=== PATIENT | female | born 1975 | race African-American/Black ===

== ENCOUNTER 2017-09-07 09:54 | Observation (INO) | payer OTHER ==
[2017-09-07] MEDS ORDERED: SODIUM CHLORIDE FLUSH 0.9% 10 ML SYRINGE IVP ONE (10:17)
[2017-09-07 11:23] LABS: ALBUMIN/GLOBULIN RATIO 1.2 (1.0-2.2); BILIRUBIN,TOTAL 0.4 mg/dL (0.2-1.0); CALCIUM 9.3 mg/dL (8.5-10.3); CREATININE 0.8 mg/dL (0.4-1.0); POTASSIUM 4.4 mmol/L (3.5-5.0); TOTAL PROTEIN 7.7 g/dL (6.7-8.2)
[2017-09-07 11:46] LABS: BASOPHILS # (AUTO) 0.1 10^3/uL (0.0-0.1); BASOPHILS % (AUTO) 0.9 %; EOSINOPHILS # (AUTO) 0.2 10^3/uL (0.0-0.7); EOSINOPHILS % (AUTO) 1.9 %; LYMPHOCYTES # (AUTO) 1.8 10^3/uL (1.5-3.5); LYMPHOCYTES % (AUTO) 19.3 %; MEAN CORPUSCULAR HEMOGLOBIN 12.6 pg (27.0-31.0); MEAN CORPUSCULAR HGB CONC 25.7 g/dL (32.0-36.0); MEAN CORPUSCULAR VOLUME 48.9 fL (81.0-99.0); MEAN PLATELET VOLUME 8.9 fL (7.9-10.8); MONOCYTES # (AUTO) 0.5 10^3/uL (0.0-1.0); MONOCYTES % (AUTO) 5.4 %; NEUTROPHILS # (AUTO) 6.9 10^3/uL (1.5-6.6); NEUTROPHILS % (AUTO) 72.5 %; RED BLOOD COUNT 4.71 10^6/uL (4.20-5.40); UNCORRECTED WHITE BLOOD COUNT 9.5 x10^3/uL; WHITE BLOOD COUNT 9.5 x10^3/uL (4.8-10.8)
[2017-09-07 11:53] LABS: HGB - HEMOGLOBIN 5.9 g/dL (12.0-16.0)
[2017-09-07 12:08] LABS: PLATELET MORPHOLOGY RARE GIANT PLATELETS (NORMAL)
[2017-09-07 12:09] LABS: PLATELET ESTIMATE, MANUAL NORMAL (130-450,000) (NORMAL)
--- NOTE | 2017-09-07 12:09 | ED Physician Documentation ---
History of Present Illness - Stated complaint Stated Complaint: DIZZINESS - Chief complaint Chief Complaint: Neuro - History obtained from History obtained from: Patient - History of Present Illness Timing: How many weeks ago (3) - Additonal information Additional information: 42-year-old female with a long history of anemia and a family history of anemia related to heavy menstrual flow and iron deficiency has not been taking her iron for about 2 years. She has noticed over the past 3 weeks that she has become more fatigued has exertional dyspnea with shorter and shorter distances. Today she went to go into work and was not able to stay at work with fatigue dyspnea and near syncope. She is come to the emergency department today for evaluation.She does have a history of COPD last used her inhaler about 2 weeks ago. She states that usually she begins coughing in the winter and coughs all winter. She has been on Advair previously which helped with this but she is not currently using anything but an albuterol rescue inhaler. Review of Systems Constitutional: reports: Fatigue. denies: Fever, Chills Eyes: denies: Decreased vision Ears: denies: Ear pain Nose: denies: Rhinorrhea / runny nose, Congestion Throat: denies: Sore throat Cardiac: denies: Chest pain / pressure, Palpitations Respiratory: reports: Dyspnea, Cough GI: denies: Abdominal Pain, Nausea, Vomiting : denies: Dysuria, Frequency Skin: denies: Rash Musculoskeletal: denies: Neck pain, Back pain, Extremity pain Neurologic: reports: Generalized weakness, Near syncope. denies: Focal weakness , Numbness PD PAST MEDICAL HISTORY - Past Medical History Past Medical History: Yes Endocrine/Autoimmune: HyPOthyroidism - Past Surgical History Past Surgical History: No - Present Medications Home Medications: Ambulatory Orders Medication Instructions Recorded Confirmed Albuterol Sulfate [Ventolin Hfa] 2 puffs IH Q4H PRN 03/24/16 09/07/17 - Allergies Allergies/Adverse Reactions: Allergies Allergy/AdvReac Type Severity Reaction Status Date / Time oxycodone Allergy Itching Verified 03/24/16 18:05 - Social History Does the pt smoke?: No Smoking Status: Never smoker Does the pt drink ETOH?: No Does the pt have substance abuse?: No - Immunizations Immunizations are current?: Yes PD ED PE NORMAL - Vitals Vital signs reviewed: Yes (hypertensive) - General General: Alert and oriented X 3, No acute distress, Well developed/nourished - HEENT HEENT: Atraumatic, PERRL, EOMI, Other (mild inflamation in the left TM in the attic) - Neck Neck: Supple, no meningeal sign, No bony TTP - Cardiac Cardiac: RRR, No murmur - Respiratory Respiratory: No respiratory distress, Other (diminished breath sounds. ) - Abdomen Abdomen: Soft, Non tender - Back Back: No CVA TTP, No spinal TTP - Derm Derm: Normal color, Warm and dry, No rash - Extremities Extremities: No deformity, No edema - Neuro Neuro: No motor deficit, No sensory deficit - Psych Psych: Normal mood, Normal affect Results - Vitals Vitals: Vital Signs - 24 hr 09/07/17 10:08 Temperature 36.1 C L Heart Rate 83 Respiratory 17 Rate Blood Pressure 137/84 H O2 Saturation 100 Oxygen O2 Source Room air - EKG (time done) 1027 Rate: Rate (enter#) (75) Rhythm: NSR Ischemia: Normal ST segments Compare to prior EKG: Old EKG unavailable Computer interpretation: Agree with computer - Labs Labs: Laboratory Tests 09/07/17 09/07/17 10:55 10:55 WBC 9.5 RBC 4.71 Hgb 5.9 L* Hct 23.0 L MCV 48.9 L MCH 12.6 L MCHC 25.7 L RDW 23.0 H Plt Count 243 MPV 8.9 Neut # 6.9 H Lymph # 1.8 Runnels # 0.5 Eos # 0.2 Baso # 0.1 Absolute Nucleated RBC 0.00 Nucleated RBC % 0.0 Manual Slide Review Indicated Platelet Estimate NORMAL (130-450,000) Platelet Morphology RARE GIANT PLATELETS RBC Morph Micro Appear 1+ SCHISTOCYTES Sodium 139 Potassium 4.4 Chloride 105 Carbon Dioxide 22 Anion Gap 12.0 BUN 12 Creatinine 0.8 Estimated GFR (MDRD) 96 Glucose 107 H Calcium 9.3 Total Bilirubin 0.4 AST 15 ALT 14 Alkaline Phosphatase 58 Total Protein 7.7 Albumin 4.2 Globulin 3.5 Albumin/Globulin Ratio 1.2 Lipase 21 L Slides for Path Review Indicated PD MEDICAL DECISION MAKING - ED course Complexity details: reviewed results, re-evaluated patient, considered differential, d/w patient ED course: 42-year-old female with a prior history of chronic anemia iron deficiency has been off of her iron for 2 years and is developed symptomatic anemia. Today herHemoglobin is 5.9 MCV is 49. She is symptomatic from her anemia with exertional dyspnea and near syncope. She will need transfusion. Departure - Departure Disposition: ED Place in Observation Clinical Impression: Anemia Qualifiers: Anemia type: iron deficiency Iron deficiency anemia type: chronic blood loss Qualified Code(s): D50.0 - Iron deficiency anemia secondary to blood loss ( chronic) Condition: Stable
[2017-09-07 12:10] LABS: SLIDE SENT FOR PATH REVIEW? Indicated
[2017-09-07 12:12] LABS: CBC SPECIMEN NUMBER 759938; PATHOLOGIST REVIEW ORDER PATH SLIDE REVIEW
[2017-09-07] MEDS ORDERED: ACETAMINOPHEN 325 MG TABLET PO PRN (13:07)
[2017-09-07] MEDS ORDERED: ONDANSETRON 4 MG/2 ML VIAL IVP PRN (13:07)
[2017-09-07] MEDS ORDERED: FERRIC GLUCONATE 62.5 MG/5 ML VIAL IVP ONE (13:14)
[2017-09-07] MEDS ORDERED: ALBUTEROL NEB 2.5 MG/3 ML INH PRN (13:16)
--- NOTE | 2017-09-07 14:23 | HISTORY & PHYSICAL EXAMINATION ---
Chief Complaint - Chief Complaint Chief Complaint: dizziness, anemia History of Present Illness - Admitted From Admitted From:: ER - History Obtained From History obtained from: pt - History of Present Illness HPI Comment/Other: This is a 42-year-old -Swedish female with a past medical history significance for chronic iron deficiency anemia, heavy menstrual period, hypothroidism, Bronchitis, who present ER for evaluation of fatigue, dizziness, and weakness. Patient report in the recent three weeks she feel very easy fatigue, dizziness and weakness, and she can not focus on her work and easy be forgetful. patient report she recently moved from [place]. She did not take her Iron pill for at least two years. Patient report she had a family history of heavy menses including her mother, sisters and her daughter. Patient state " I did not take care of myself well." Patient denies chest pain, Shortness of breathing, headache, abdominal pain, fever, chill, nausea, vomiting, diarrhea, GI bleeding, dysuria, hematuria, vision issue. In the ER lab test, her HGB is 5.9, MCV 48.9. EKG is SR at pulse 75. Patient is admitted for evaluation and treatment of anemia. History - Past Medical History Endocrine/Autoimmune: reports: HyPOthyroidism - Family & Social History Family History: Mother: Alive and Well, Father: Alive and Well Family History Comment/Other: pt is single with two children, living at [place], working at [employer]. Living arrangement: At home Living Situation: With family - Substance History Use: Uses substance without health or social issues: NONE Abuse: Recurrent use of substance despite neg consequences: NONE - POLST Patient has POLST: No POLST Status: Full Code Meds/Allgy - Home Medications Home Medications: Ambulatory Orders Medication Instructions Recorded Confirmed Albuterol Sulfate [Ventolin Hfa] 2 puffs IH Q4H PRN 03/24/16 09/07/17 - Allergies Allergies/Adverse Reactions: Allergies Allergy/AdvReac Type Severity Reaction Status Date / Time oxycodone Allergy Itching Verified 03/24/16 18:05 Review of Systems - Constitutional Constitutional: reports: Fatigue, Weakness. denies: Fever, Chills, Malaise, Poor appetite, Diaphoresis, Night sweats, Weight gain, Weight loss - Eyes Eyes: denies: Pain, Irritation, Amaurosis, Blurred vision, Spots in vision, Field loss, Vision loss, Dipolpia - Ears, Nose & Throat Ears, Nose & Throat: denies: Ear pain, Hearing loss, Hearing aids, Vertigo, Nasal pain, Nasal discharge, Nosebleeds, Sore throat, Bleeding gums - Cardiovascular Cariovascular: denies: Irregular heart rate, Palpitations, Chest pain, Edema, Lightheadedness, Syncope, Exertional dyspnea, Decr. exercise tolerance - Respiratory Respiratory: denies: Cough, Sputum production, Wheezing, Snoring, Hemoptysis, Orthopnea, SOB at rest, SOB with exertion - Gastrointestinal Gastrointestinal: denies: Abdominal pain, Abdominal distention, Diarrhea, Rectal bleeding, Black stools, Bloody stools, Nausea, Vomiting, Vamshi blood emesis, Coffee grounds emesis, Reflux/heartburn, Bloating, Poor appetite - Genitourinary Genitourinary: denies: Dysuria, Frequency, Urgency, Hematuria, Incontinence, Flank pain, Nocturia, Urethral discharge - Musculoskeletal Musculoskeletal: denies: Muscle pain, Back pain, Muscle aches, Stiffness, Limited range of motion, Muscle weakness, Gout, Joint pain, Joint swelling - Integumentary Integumentary: denies: Rash, Pruritis, Lesions, Dryness, Pigment changes - Neurological Neurological: denies: General weakness, Focal weakness, Headache, Dizziness, Numbness, Memory problems, Pre-existing deficit, Abnormal gait, Seizures, Incoordination, Slurred speech - Psychiatric Psychiatric: denies: Depression, Anxiety, Suicidal, Delusions, Hallucinations, Homicidal - Endocrine Endocrine: denies: Polyuria, Polydypsia, Polyphagia, Intolerance to cold - Hematologic/Lymphatic Hematologic/Lymphatic: reports: Anemia. denies: Bruising, Petechiae, Blood clots, Lymphadenopathy, Bleeding tendencies, Recurrent infections Exam - Vital Signs Reviewed Vital Signs: Yes Vital Signs: Vital Signs x48h Temp Pulse Pulse Resp BP BP Pulse Ox 09/07/17 13:44 36.4 C L 82 149/76 H 100 09/07/17 13:14 78 20 122/74 99 - Physical Exam General Appearance: positive: No acute distress, Alert. negative: Lethargic Eyes Bilateral: positive: Normal inspection, PERRL, EOMI, No lid inflammation, Conjunctivae nml ENT: positive: ENT inspection nml, Pharynx nml, No signs of dehydration. negative: Purulent nasal drainage, Pharyngeal erythema, Oral lesions Neck: positive: Nml inspection, Thyroid nml, No JVD, Trachea midline. negative : Thyromegaly, Lymphadenopathy (R), Lymphadenopathy (L), Stiff neck, Carotid bruit, Swelling/bruising, Tracheal deviation Respiratory: positive: Chest non-tender, No respiratory distress, Breath sounds nml. negative: Wheezes, Rales, Rhonchi Cardiovascular: positive: Regular rate & rhythm, No murmur, No gallop. negative : Irregularly irregular, Extrasystoles, Tachycardia, PMI displaced laterally, JVD present, Systolic murmur, Diastolic murmur Peripheral Pulses: positive: 2+ Abdomen: positive: Non-tender, No organomegaly, Nml bowel sounds, No distention. negative: Tenderness, Guarding, Rebound Back: positive: Nml inspection. negative: CVA tenderness (R), CVA tenderness (L ) Skin: positive: Color nml, No rash, Warm, Dry. negative: Cyanosis, Diaphoresis , Pallor, Skin rash Extremities: positive: Non-tender, Full ROM, Nml appearance. negative: Calf tenderness, Gasper's sign/cords Neurologic/Psychiatric: positive: Oriented x3, Motor nml, Sensation nml, Mood/ affect nml. negative: Sensory loss, Facial droop, Slurred/abnml speech, Depressed mood/affect Conclusion/Plan - Problem List (1) Anemia Conclusion/Plan: HGB5.9, MCV 48.9, history of heavy menses, and iron deficiency. transfusion blood and recheck HGB IV Ferrlcit daily lab, vital monitor Qualifiers: Anemia type: iron deficiency Iron deficiency anemia type: chronic blood loss Qualified Code(s): D50.0 - Iron deficiency anemia secondary to blood loss (chronic) (2) Hypothyroid Conclusion/Plan: pt report she had history of hypothyroid, but she did not take any medication check TSH vital monitor closely (3) Hx of bronchitis Conclusion/Plan: stable, resume home INH (4) DVT prophylaxis Conclusion/Plan: SCD, pt is without mobility limitation. - Lab Results Fish Bones: 09/08/17 05:43 09/08/17 05:43 Issues/Core Measures - Anticipated LOS Anticipated Stay Length: Less than 2 midnights (less than two nights expected)
[2017-09-07] MEDS: SODIUM CHLORIDE FLUSH 0.9% 10 ML SYRINGE IVP SCH ×2 (15:42→21:47)
[2017-09-07] MEDS ORDERED: FERRIC GLUCONATE 125 MG in SODIUM CHLORIDE 0.9% 100ML 100 ML IV ONE (16:00)
[2017-09-07] MEDS: SODIUM CHLORIDE FLUSH 0.9% 10 ML SYRINGE IVP PRN (20:29)
[2017-09-07] MEDS ORDERED: SODIUM CHLORIDE 0.9% 250 ML IV ONE (21:39)
[2017-09-08 02:58] LABS: HCT - HEMATOCRIT 25.1 % (37.0-47.0); HGB - HEMOGLOBIN 7.1 g/dL (12.0-16.0)
[2017-09-08 06:03] LABS: ALBUMIN/GLOBULIN RATIO 1.2 (1.0-2.2); BILIRUBIN,TOTAL 0.7 mg/dL (0.2-1.0); CALCIUM 8.3 mg/dL (8.5-10.3); CREATININE 0.7 mg/dL (0.4-1.0); MAGNESIUM 2.1 mg/dL (1.7-2.8); POTASSIUM 3.9 mmol/L (3.5-5.0); TOTAL PROTEIN 6.5 g/dL (6.7-8.2)
[2017-09-08 06:06] LABS: BASOPHILS # (AUTO) 0.1 10^3/uL (0.0-0.1); BASOPHILS % (AUTO) 0.7 %; EOSINOPHILS # (AUTO) 0.2 10^3/uL (0.0-0.7); HGB - HEMOGLOBIN 7.1 g/dL (12.0-16.0); LYMPHOCYTES # (AUTO) 1.8 10^3/uL (1.5-3.5); LYMPHOCYTES % (AUTO) 19.9 %; MEAN PLATELET VOLUME 8.9 fL (7.9-10.8); MONOCYTES # (AUTO) 0.7 10^3/uL (0.0-1.0); MONOCYTES % (AUTO) 7.5 %; NEUTROPHILS # (AUTO) 6.3 10^3/uL (1.5-6.6); NEUTROPHILS % (AUTO) 69.9 %; NUCLEATED RED BLOOD CELLS AUTO 0.1 /100WBC
[2017-09-08 06:09] LABS: HCT - HEMATOCRIT 25.5 % (37.0-47.0); MEAN CORPUSCULAR HEMOGLOBIN 15.1 pg (27.0-31.0); MEAN CORPUSCULAR HGB CONC 27.7 g/dL (32.0-36.0); MEAN CORPUSCULAR VOLUME 54.6 fL (81.0-99.0); RED BLOOD COUNT 4.68 10^6/uL (4.20-5.40); RED CELL DISTRIBUTION WIDTH 31.5 % (12.0-15.0); UNCORRECTED WHITE BLOOD COUNT 8.9 x10^3/uL; WHITE BLOOD COUNT 8.9 x10^3/uL (4.8-10.8)
[2017-09-08 06:48] LABS: PLATELET ESTIMATE, MANUAL NORMAL (130-450,000) (NORMAL)
[2017-09-08] MEDS: SODIUM CHLORIDE FLUSH 0.9% 10 ML SYRINGE IVP SCH ×2 (07:05→13:39)
[2017-09-08] MEDS ORDERED: CALCIUM GLUCONATE 1,000 MG in SODIUM CHLORIDE 0.9% 50 ML IV ONE (09:00)
[2017-09-08] MEDS ORDERED: POLYETHYLENE GLYCOL 3350 17 GM PACKET PO SCH (09:00)
[2017-09-08] MEDS ORDERED: FAMOTIDINE 20 MG TABLET PO SCH (09:00)
[2017-09-08] MEDS: SODIUM CHLORIDE FLUSH 0.9% 10 ML SYRINGE IVP PRN (10:25)
[2017-09-08] MEDS: FERROUS SULFATE 325 MG TABLET PO SCH ×2 (10:25→17:10)
--- NOTE | 2017-09-08 13:33 | Discharge Plan ---
Discharge Plan Disposition: 01 Home, Self Care Condition: Stable No Smoking: If you smoke, Please STOP! Call for help. Follow-up with: Kristen Callaway PA-C [Primary Care Provider] -
[2017-09-08 18:11] LABS: HCT - HEMATOCRIT 31.1 % (37.0-47.0); HGB - HEMOGLOBIN 8.9 g/dL (12.0-16.0)
[2017-09-08 18:23] VITALS: BP 124/59
--- NOTE | 2017-09-08 18:23 | PROVIDER PROGRESS NOTE ---
Subjective - Prog Note Date Prog Note Date: 09/08/17 - Subjective Pt reports feeling: Improved Objective - Vital Signs/Intake & Output Vital Signs: Vital Signs x48h Temp Pulse Resp BP Pulse Ox 09/08/17 17:00 36.7 C 87 18 124/59 L 100 09/08/17 13:30 36.4 C L 87 16 116/56 L 99 Intake & Output: Intake & Output 09/05/17 09/06/17 09/07/17 09/08/17 23:59 23:59 23:59 23:59 Intake Total 9428.711 5865.917 Balance 2852.144 6841.917 - Lab Results Fish Bones: 09/08/17 18:07 09/08/17 05:43 Other Labs: Lab Results x24hrs 09/08/17 09/08/17 09/08/17 Range/Units 18:07 05:43 05:43 WBC (4.8-10.8) x10^3/uL RBC (4.20-5.40) 10^6/uL Hgb 8.9 L (12.0-16.0) g/dL Hct 31.1 L (37.0-47.0) % MCV (81.0-99.0) fL MCH (27.0-31.0) pg MCHC (32.0-36.0) g/dL RDW (12.0-15.0) % Plt Count (130-450) 10^3/uL MPV (7.9-10.8) fL Neut # (1.5-6.6) 10^3/uL Lymph # (1.5-3.5) 10^3/uL Glenn # (0.0-1.0) 10^3/uL Eos # (0.0-0.7) 10^3/uL Baso # (0.0-0.1) 10^3/uL Absolute Nucleated RBC x10^3/uL Nucleated RBC % /100WBC Manual Slide Review Platelet Estimate (NORMAL) RBC Morph Micro Appear (NORMAL) Sodium 137 (135-145) mmol/L Potassium 3.9 (3.5-5.0) mmol/L Chloride 106 (101-111) mmol/L Carbon Dioxide 23 (21-32) mmol/L Anion Gap 8.0 (6-13) BUN 13 (6-20) mg/dL Creatinine 0.7 (0.4-1.0) mg/dL Estimated GFR (MDRD) 112 (>89) Glucose 108 H (70-100) mg/dL Calcium 8.3 L (8.5-10.3) mg/dL Magnesium 2.1 (1.7-2.8) mg/dL Total Bilirubin 0.7 (0.2-1.0) mg/dL AST 11 (10-42) IU/L ALT 10 (10-60) IU/L Alkaline Phosphatase 53 (42-121) IU/L Total Protein 6.5 L (6.7-8.2) g/dL Albumin 3.5 (3.2-5.5) g/dL Globulin 3.0 (2.1-4.2) g/dL Albumin/Globulin Ratio 1.2 (1.0-2.2) TSH 10.01 H (0.34-5.60) uIU/mL 09/08/17 09/08/17 Range/Units 05:43 02:44 WBC 8.9 (4.8-10.8) x10^3/uL RBC 4.68 (4.20-5.40) 10^6/uL Hgb 7.1 L 7.1 L (12.0-16.0) g/dL Hct 25.5 L 25.1 L (37.0-47.0) % MCV 54.6 L (81.0-99.0) fL MCH 15.1 L (27.0-31.0) pg MCHC 27.7 L (32.0-36.0) g/dL RDW 31.5 H (12.0-15.0) % Plt Count 233 (130-450) 10^3/uL MPV 8.9 (7.9-10.8) fL Neut # 6.3 (1.5-6.6) 10^3/uL Lymph # 1.8 (1.5-3.5) 10^3/uL Glenn # 0.7 (0.0-1.0) 10^3/uL Eos # 0.2 (0.0-0.7) 10^3/uL Baso # 0.1 (0.0-0.1) 10^3/uL Absolute Nucleated RBC 0.01 x10^3/uL Nucleated RBC % 0.1 /100WBC Manual Slide Review Indicated Platelet Estimate NORMAL (130-450,000) (NORMAL) RBC Morph Micro Appear 1+ SCHISTOCYTES (NORMAL) Sodium (135-145) mmol/L Potassium (3.5-5.0) mmol/L Chloride (101-111) mmol/L Carbon Dioxide (21-32) mmol/L Anion Gap (6-13) BUN (6-20) mg/dL Creatinine (0.4-1.0) mg/dL Estimated GFR (MDRD) (>89) Glucose (70-100) mg/dL Calcium (8.5-10.3) mg/dL Magnesium (1.7-2.8) mg/dL Total Bilirubin (0.2-1.0) mg/dL AST (10-42) IU/L ALT (10-60) IU/L Alkaline Phosphatase (42-121) IU/L Total Protein (6.7-8.2) g/dL Albumin (3.2-5.5) g/dL Globulin (2.1-4.2) g/dL Albumin/Globulin Ratio (1.0-2.2) TSH (0.34-5.60) uIU/mL Assessment/Plan - Problem List (1) Anemia Qualifiers: Anemia type: iron deficiency Iron deficiency anemia type: chronic blood loss Qualified Code(s): D50.0 - Iron deficiency anemia secondary to blood loss (chronic)
--- NOTE | 2017-09-08 18:45 | Discharge Plan ---
Discharge Plan Disposition: 01 Home, Self Care Condition: Stable Prescriptions: Ferrous Sulfate 325 mg PO BID #14 tablet Diet: Regular Activity Restrictions: Activity as Tolerated Shower Restrictions: No Driving Restrictions: No Weight Bearing: Full Weight Additional Instructions or Follow Up instructions: May see PCP in one week Follow-Up Care: [facility] – [place] Clinic - Medical No Smoking: If you smoke, Please STOP! Call for help. Follow-up with: Kristen Callaway PA-C [Primary Care Provider] -
--- NOTE | 2017-09-08 18:53 | DISCHARGE SUMMARY ---
Discharge Summary Admit Date: 09/07/17 Discharge Date: 09/08/17 Discharging Provider: HILLIARD Primary Care Provider: Kristen Valdes Condition at Discharge: Stable Discharge Disposition: 01 Home, Self Care Discharge Facility Name: home - DIAGNOSES Admission Diagnoses: (1) Anemia (2) Hypothyroid (3) Hx of bronchitis (4) medical non-compliance Discharge Diagnoses with Status of Each Condition: (1) Anemia pt was transfused 4 unit RBC, HGB is 9 now. Pt state she feel much better. pt was treated with IV Ferricit, and PO iron (2) Hypothyroid stable, TSH 10. Pt is advised to follow up PCP to manage (3) Hx of bronchitis stable, (4) medical non-compliance it is pt's major medical problem. Pt is advised and consulted for medical compliance. Pt simply did not take her medications. - HPI History of Present Illness: Please refer from my HPI on 09/08/17 - HOSPITAL COURSE Hospital Course: Pt was admitted with symptomatic anemia. Her HGB is 5.9. The reason is pt did not medical compliance. Pt state she just did not take her iron pill for two years. Pt was transfused four units of RBC, her HGB become 8.9 after transfused. Pt state she feel much better and energetic. Pt is treated IV Ferricit in hospital and PO Iron was prescribed to pt for D/C - ALLERGIES Allergies/Adverse Reactions: Allergies Allergy/AdvReac Type Severity Reaction Status Date / Time oxycodone Allergy Itching Verified 03/24/16 18:05 - MEDICATIONS Home Medications: Ambulatory Orders Medication Instructions Recorded Confirmed Albuterol Sulfate [Ventolin Hfa] 2 puffs IH Q4H PRN 03/24/16 09/07/17 Ferrous Sulfate 325 mg PO BID #14 tablet 09/08/17 - PHYSICAL EXAM AT DISCHARGE General Appearance: positive: No acute distress, Alert. negative: Lethargic Eyes Bilateral: positive: Normal inspection, PERRL, EOMI, No lid inflammation, Conjunctivae nml ENT: positive: ENT inspection nml, Pharynx nml, No signs of dehydration. negative: Purulent nasal drainage, Pharyngeal erythema, Oral lesions Neck: positive: Nml inspection, Thyroid nml, Trachea midline. negative: Thyromegaly, Lymphadenopathy (R), Lymphadenopathy (L), Stiff neck, Carotid bruit , Swelling/bruising, Tracheal deviation Respiratory: positive: Chest non-tender, No respiratory distress, Breath sounds nml. negative: Wheezes, Rales, Rhonchi Cardiovascular: positive: Regular rate & rhythm, No murmur, No gallop. negative : Irregularly irregular, Extrasystoles, Tachycardia, Bradycardia, Systolic murmur, Diastolic murmur Peripheral Pulses: positive: 2+ Abdomen: positive: Non-tender, Nml bowel sounds, No distention. negative: Tenderness, Guarding, Rebound Back: positive: Nml inspection. negative: CVA tenderness (R), CVA tenderness (L ) Skin: positive: Color nml, No rash, Warm, Dry. negative: Cyanosis, Diaphoresis , Pallor, Skin rash Extremities: positive: Non-tender, Full ROM, Nml appearance. negative: Calf tenderness, Joint swelling, Gasper's sign/cords Neurologic/Psychiatric: positive: Oriented x3, Motor nml, Sensation nml, Mood/ affect nml. negative: Sensory loss, Facial droop, Slurred/abnml speech, Depressed mood/affect - LABS Result Diagrams: 09/08/17 18:07 09/08/17 05:43 - FOLLOW UP Follow Up: pt is advised to follow up PCP in one week. Pt is advised to discuss with her PCP to begin thyroid medication. Pt is consulted and advised for medical compliance.
== END 2017-09-08 19:20 | disposition home or self-care (01) ==
LOC: ED 09:54 → OBS 13:07
PROVIDERS: ADMIT Nurse Practitioner Gerontology; ATTEND Nurse Practitioner Gerontology
DX: D50.0 Iron deficiency anemia secondary to blood loss (chronic) (principal); N92.0 Excessive and frequent menstruation with regular cycle; E03.9 Hypothyroidism, unspecified; Z79.51 Long term (current) use of inhaled steroids; Z87.09 Personal history of other diseases of the respiratory system; T50.906A Underdosing of unspecified drugs, medicaments and biological substances, initial encounter; Z91.138 Patient's unintentional underdosing of medication regimen for other reason
CPT/HCPCS: 36415; 36430; 80053; 83690; 83735; 84443; 85014; 85018; 85025; 86850; 86900; 86901; 86920; 93005; 94640; 96361; 96365; 96367; 99218; 99283; 99285; A9270; J2916; J7040; J7613; P9016

== ENCOUNTER 2017-09-15 14:48 | Outpatient (CLI) | payer OTHER ==
[2017-09-15 12:59] LABS: BASOPHILS % (AUTO) 0.5 %; EOSINOPHILS # (AUTO) 0.2 10^3/uL (0.0-0.7); EOSINOPHILS % (AUTO) 1.9 %; HCT - HEMATOCRIT 34.5 % (37.0-47.0); HGB - HEMOGLOBIN 10.1 g/dL (12.0-16.0); LYMPHOCYTES # (AUTO) 1.4 10^3/uL (1.5-3.5); MEAN CORPUSCULAR HEMOGLOBIN 18.3 pg (27.0-31.0); MEAN CORPUSCULAR HGB CONC 29.2 g/dL (32.0-36.0); MEAN CORPUSCULAR VOLUME 62.5 fL (81.0-99.0); MEAN PLATELET VOLUME 9.6 fL (7.9-10.8); MONOCYTES # (AUTO) 0.5 10^3/uL (0.0-1.0); MONOCYTES % (AUTO) 5.3 %; NEUTROPHILS # (AUTO) 7.2 10^3/uL (1.5-6.6); NEUTROPHILS % (AUTO) 77.3 %; NUCLEATED RED BLOOD CELLS AUTO 0.1 /100WBC; RED BLOOD COUNT 5.52 10^6/uL (4.20-5.40); RED CELL DISTRIBUTION WIDTH 40.4 % (12.0-15.0); UNCORRECTED WHITE BLOOD COUNT 9.3 x10^3/uL; WHITE BLOOD COUNT 9.3 x10^3/uL (4.8-10.8)
[2017-09-15 13:09] LABS: THYROID STIMULATING HORMONE 10.5 uIU/mL (0.34-5.60)
[2017-09-15 13:12] LABS: ALBUMIN/GLOBULIN RATIO 1.2 (1.0-2.2); BILIRUBIN,TOTAL 0.4 mg/dL (0.2-1.0); BUN - BLOOD UREA NITROGEN 11 mg/dL (6-20); CALCIUM 8.9 mg/dL (8.5-10.3); CARBON DIOXIDE - CO2 23 mmol/L (21-32); CHLORIDE 104 mmol/L (101-111); CHOL/HDL RATIO 3.7 (<4.4); CHOLESTEROL 173 mg/dL; CREATININE 0.7 mg/dL (0.4-1.0); GFR - MDRD 112 (>89); GLUCOSE 97 mg/dL (70-100); HDL CHOLESTEROL 47 mg/dL; LDL/HDL RATIO 2.2 (<4.4); POTASSIUM 4.2 mmol/L (3.5-5.0); SODIUM 135 mmol/L (135-145); TOTAL PROTEIN 7.2 g/dL (6.7-8.2); TRIGLYCERIDES 120 mg/dL; VLDL CHOLESTEROL 24 mg/dL
[2017-09-15 13:29] LABS: PLATELET MORPHOLOGY RARE GIANT PLATELETS (NORMAL)
== END 2017-09-15 14:49 | disposition home or self-care (01) ==
LOC: LAB.WCP 14:48
PROVIDERS: ATTEND Physician Assistant Medical
DX: Z00.00 Encounter for general adult medical examination without abnormal findings (principal); E03.9 Hypothyroidism, unspecified
CPT/HCPCS: 36415; 80053; 80061; 84439; 84443; 85025

== ENCOUNTER 2017-10-24 18:22 | Outpatient (CLI) | payer OTHER ==
--- NOTE | 2017-10-25 09:46 | Ultrasound Report ---
PELVIC ULTRASOUND: 10/24/2017 CLINICAL INDICATION: Excessive menstruation. TECHNIQUE: Transabdominal pelvic ultrasound performed for global evaluation. Transvaginal pelvic ul trasound performed for detailed evaluation. Real-time scanning performed and static images obtained. FINDINGS: The uterus is anteverted, measuring 9.8 x 8.2 x 5.8 cm. The endometrial echo complex chery ures 8 mm. There is a 3.9 x 3.3 x 2.5 cm right fundal intramural leiomyoma. The ovaries are unremar kable, with the right measuring 2.7 x 2.6 x 1.2 cm, and the left measuring 2.2 x 1.6 x 1.4 cm. No fr ee fluid is present. IMPRESSION: FUNDAL LEIOMYOMA. JOB #: [id number] EXT JOB #:[id number]
== END 2017-10-24 18:23 | disposition home or self-care (01) ==
LOC: DI 18:22
PROVIDERS: ATTEND Physician Assistant Medical
DX: D25.1 Intramural leiomyoma of uterus (principal)
CPT/HCPCS: 76830; 76856

== ENCOUNTER 2017-10-25 08:34 | Outpatient (CLI) | payer OTHER ==
[2017-10-25 11:09] LABS: BASOPHILS % (AUTO) 0.4 %; EOSINOPHILS # (AUTO) 0.1 10^3/uL (0.0-0.7); EOSINOPHILS % (AUTO) 1.4 %; HCT - HEMATOCRIT 32.4 % (37.0-47.0); HGB - HEMOGLOBIN 10.7 g/dL (12.0-16.0); LYMPHOCYTES % (AUTO) 19.4 %; MEAN CORPUSCULAR HEMOGLOBIN 23.7 pg (27.0-31.0); MEAN CORPUSCULAR VOLUME 71.8 fL (81.0-99.0); MEAN PLATELET VOLUME 9.1 fL (7.9-10.8); MONOCYTES # (AUTO) 0.5 10^3/uL (0.0-1.0); MONOCYTES % (AUTO) 4.7 %; NEUTROPHILS # (AUTO) 7.6 10^3/uL (1.5-6.6); NEUTROPHILS % (AUTO) 74.1 %; RED BLOOD COUNT 4.51 10^6/uL (4.20-5.40); UNCORRECTED WHITE BLOOD COUNT 10.2 x10^3/uL; WHITE BLOOD COUNT 10.2 x10^3/uL (4.8-10.8)
[2017-10-25 11:18] LABS: PLATELET MORPHOLOGY NORMAL APPEARANCE (NORMAL)
[2017-10-25 11:19] LABS: PLATELET ESTIMATE, MANUAL NORMAL (130-450,000) (NORMAL)
[2017-10-25 11:20] LABS: WBC MORPHOLOGY (MULTIPLE) NORMAL APPEARANCE (NORMAL)
[2017-10-25 11:22] LABS: THYROID STIMULATING HORMONE 1.62 uIU/mL (0.34-5.60)
[2017-10-25 11:25] LABS: IRON 16 ug/dL (28-170); TOTAL IRON BINDING CAPACITY 400 ug/dL (250-450); TRANSFERRIN 286 mg/dL (192-382)
[2017-10-25 11:34] LABS: FOLATE 20.19 ng/mL (5.90 - >24.8)
== END 2017-10-25 08:35 | disposition home or self-care (01) ==
LOC: LAB.F 08:34
PROVIDERS: ATTEND Physician Assistant Medical
DX: N92.0 Excessive and frequent menstruation with regular cycle (principal); E03.9 Hypothyroidism, unspecified
CPT/HCPCS: 36415; 82607; 82728; 82746; 83540; 84443; 84466; 85025

== ENCOUNTER 2017-12-28 13:37 | Outpatient (CLI) | payer OTHER ==
[2017-12-28 17:42] LABS: BASOPHILS # (AUTO) 0.1 10^3/uL (0.0-0.1); BASOPHILS % (AUTO) 0.4 %; EOSINOPHILS # (AUTO) 0.2 10^3/uL (0.0-0.7); EOSINOPHILS % (AUTO) 1.9 %; HGB - HEMOGLOBIN 11.9 g/dL (12.0-16.0); LYMPHOCYTES % (AUTO) 23.5 %; MEAN CORPUSCULAR HGB CONC 31.5 g/dL (32.0-36.0); MEAN CORPUSCULAR VOLUME 79.3 fL (81.0-99.0); MEAN PLATELET VOLUME 10.1 fL (7.9-10.8); MONOCYTES # (AUTO) 0.9 10^3/uL (0.0-1.0); NEUTROPHILS # (AUTO) 8.7 10^3/uL (1.5-6.6); NEUTROPHILS % (AUTO) 67.2 %; PLT - PLATELET COUNT 311 10^3/uL (130-450); RED BLOOD COUNT 4.76 10^6/uL (4.20-5.40); RED CELL DISTRIBUTION WIDTH 16.4 % (12.0-15.0); WHITE BLOOD COUNT 12.9 x10^3/uL (4.8-10.8)
[2017-12-28 21:00] LABS: % IRON SATURATION 13 % (20-50); IRON 56 ug/dL (28-170); TOTAL IRON BINDING CAPACITY 437 ug/dL (250-450); TRANSFERRIN 312 mg/dL (192-382)
== END 2017-12-28 13:38 | disposition home or self-care (01) ==
LOC: LAB.F 13:37
PROVIDERS: ATTEND Physician Assistant Medical
DX: D50.9 Iron deficiency anemia, unspecified (principal)
CPT/HCPCS: 36415; 82728; 83540; 84466; 85025

== ENCOUNTER 2018-04-28 08:00 | Outpatient (CLI) | payer OTHER ==
[2018-04-28 12:16] LABS: BASOPHILS % (AUTO) 0.5 %; EOSINOPHILS # (AUTO) 0.2 10^3/uL (0.0-0.7); EOSINOPHILS % (AUTO) 1.9 %; HGB - HEMOGLOBIN 11.6 g/dL (12.0-16.0); LYMPHOCYTES # (AUTO) 1.7 10^3/uL (1.5-3.5); LYMPHOCYTES % (AUTO) 19.7 %; MEAN CORPUSCULAR HEMOGLOBIN 26.6 pg (27.0-31.0); MEAN CORPUSCULAR HGB CONC 32.8 g/dL (32.0-36.0); MEAN CORPUSCULAR VOLUME 81.2 fL (81.0-99.0); MEAN PLATELET VOLUME 10.3 fL (7.9-10.8); MONOCYTES # (AUTO) 0.5 10^3/uL (0.0-1.0); MONOCYTES % (AUTO) 5.4 %; NEUTROPHILS # (AUTO) 6.2 10^3/uL (1.5-6.6); NEUTROPHILS % (AUTO) 72.5 %; PLT - PLATELET COUNT 259 10^3/uL (130-450); RED BLOOD COUNT 4.36 10^6/uL (4.20-5.40); RED CELL DISTRIBUTION WIDTH 14.5 % (12.0-15.0); WHITE BLOOD COUNT 8.5 x10^3/uL (4.8-10.8)
[2018-04-28 12:41] LABS: THYROID STIMULATING HORMONE 28.18 uIU/mL (0.34-5.60)
[2018-04-28 12:46] LABS: FERRITIN 6.7 ng/mL (11.0-306.8)
[2018-04-28 13:32] LABS: FREE T4 (FREE THYROXINE) 0.43 ng/dL (0.58-1.64)
== END 2018-04-28 08:01 | disposition home or self-care (01) ==
LOC: LAB.WCP 08:00
PROVIDERS: ATTEND Physician Assistant Medical
DX: D50.9 Iron deficiency anemia, unspecified (principal); E03.9 Hypothyroidism, unspecified
CPT/HCPCS: 36415; 82728; 84439; 84443; 85025

== ENCOUNTER 2018-08-25 08:35 | Outpatient (CLI) | payer OTHER ==
[2018-08-25 12:29] LABS: BASOPHILS % (AUTO) 0.4 %; EOSINOPHILS # (AUTO) 0.1 10^3/uL (0.0-0.7); EOSINOPHILS % (AUTO) 1.2 %; HGB - HEMOGLOBIN 12.5 g/dL (12.0-16.0); LYMPHOCYTES % (AUTO) 20.1 %; MEAN CORPUSCULAR HEMOGLOBIN 26.3 pg (27.0-31.0); MEAN CORPUSCULAR HGB CONC 33.8 g/dL (32.0-36.0); MEAN PLATELET VOLUME 9.8 fL (7.9-10.8); MONOCYTES # (AUTO) 0.6 10^3/uL (0.0-1.0); MONOCYTES % (AUTO) 6.1 %; NEUTROPHILS # (AUTO) 7.1 10^3/uL (1.5-6.6); NEUTROPHILS % (AUTO) 72.2 %; PLT - PLATELET COUNT 301 10^3/uL (130-450); RED BLOOD COUNT 4.76 10^6/uL (4.20-5.40); RED CELL DISTRIBUTION WIDTH 14.4 % (12.0-15.0); WHITE BLOOD COUNT 9.8 x10^3/uL (4.8-10.8)
[2018-08-25 12:51] LABS: THYROID STIMULATING HORMONE 5.08 uIU/mL (0.34-5.60)
[2018-08-25 12:56] LABS: FERRITIN 5.8 ng/mL (11.0-306.8)
== END 2018-08-25 08:36 | disposition home or self-care (01) ==
LOC: LAB.WCP 08:35
PROVIDERS: ATTEND Physician Assistant Medical
DX: D50.9 Iron deficiency anemia, unspecified (principal); E03.9 Hypothyroidism, unspecified
CPT/HCPCS: 36415; 82728; 84443; 85025

== ENCOUNTER 2019-04-24 08:53 | Outpatient (CLI) | payer OTHER ==
[2019-04-24 12:04] LABS: BASOPHILS % (AUTO) 0.5 %; EOSINOPHILS # (AUTO) 0.2 10^3/uL (0.0-0.7); EOSINOPHILS % (AUTO) 2.1 %; HGB - HEMOGLOBIN 12.8 g/dL (12.0-16.0); LYMPHOCYTES # (AUTO) 1.6 10^3/uL (1.5-3.5); LYMPHOCYTES % (AUTO) 18.7 %; MEAN CORPUSCULAR HGB CONC 32.2 g/dL (32.0-36.0); MEAN CORPUSCULAR VOLUME 83.7 fL (81.0-99.0); MEAN PLATELET VOLUME 10.4 fL (7.9-10.8); MONOCYTES # (AUTO) 0.4 10^3/uL (0.0-1.0); MONOCYTES % (AUTO) 4.5 %; NEUTROPHILS # (AUTO) 6.5 10^3/uL (1.5-6.6); NEUTROPHILS % (AUTO) 74.2 %; PLT - PLATELET COUNT 237 10^3/uL (130-450); RED BLOOD COUNT 4.74 10^6/uL (4.20-5.40); RED CELL DISTRIBUTION WIDTH 15.1 % (12.0-15.0); WHITE BLOOD COUNT 8.8 x10^3/uL (4.8-10.8)
[2019-04-24 12:30] LABS: % IRON SATURATION 21 % (20-50); ALBUMIN 3.7 g/dL (3.2-5.5); ALKALINE PHOSPHATASE 71 IU/L (42-121); ALT ALANINE AMINOTRANSFERASE 26 IU/L (10-60); AST ASPARTATE AMINOTRANSFERASE 23 IU/L (10-42); BILIRUBIN,TOTAL 0.6 mg/dL (0.2-1.0); BUN - BLOOD UREA NITROGEN 10 mg/dL (6-20); CALCIUM 8.6 mg/dL (8.5-10.3); CARBON DIOXIDE - CO2 23 mmol/L (21-32); CHLORIDE 101 mmol/L (101-111); CHOL/HDL RATIO 3.3 (<4.4); CHOLESTEROL 198 mg/dL; CREATININE 0.7 mg/dL (0.4-1.0); GFR - MDRD 111 (>89); GLUCOSE 104 mg/dL (70-100); HDL CHOLESTEROL 60 mg/dL; IRON 77 ug/dL (28-170); LDL CHOLESTEROL,CALCULATED 114 mg/dL; LDL/HDL RATIO 1.9 (<4.4); SODIUM 134 mmol/L (135-145); TOTAL IRON BINDING CAPACITY 367 ug/dL (250-450); TOTAL PROTEIN 7.5 g/dL (6.7-8.2); TRANSFERRIN 262 mg/dL (192-382); VLDL CHOLESTEROL 24 mg/dL
[2019-04-24 12:38] LABS: THYROID STIMULATING HORMONE 6.68 uIU/mL (0.34-5.60)
[2019-04-24 12:43] LABS: FERRITIN 16.2 ng/mL (11.0-306.8)
== END 2019-04-24 08:54 | disposition home or self-care (01) ==
LOC: LAB.F 08:53
PROVIDERS: ATTEND Physician Assistant Medical
DX: E03.9 Hypothyroidism, unspecified (principal); D50.9 Iron deficiency anemia, unspecified; E55.9 Vitamin D deficiency, unspecified
CPT/HCPCS: 36415; 80053; 80061; 82728; 83540; 83721; 84443; 84466; 85025

== ENCOUNTER 2019-05-18 17:01 | Outpatient (CLI) | payer OTHER ==
--- NOTE | 2019-05-21 09:12 | Ultrasound Report ---
Reason: UTERINE FIBROIDS Procedure Date: 05/18/2019 Accession Number: [id number] / [id number] Procedure: US - Pelvic w/Transvaginal CPT Code: FULL RESULT: EXAM: PELVIC ULTRASOUND EXAM DATE: 05/18/2019 05:55 PM. CLINICAL HISTORY: Uterine fibroids. COMPARISON: PELVIC W/TRANSVAGINAL 10/24/2017 7:17 PM. TECHNIQUE: Realtime transabdominal pelvic scan performed to identify the uterus and adnexa and as an overview of other pelvic structures, followed by transvaginal scan to provide greater detail of the uterus and adnexa, with static image documentation. FINDINGS: Uterus: 9.5 x 6.2 x 8.9 cm, volume 244 cc. Anteverted position. Normal overall size and echotexture. Masses: A dominant fibroid measuring 5.5 x 5.1 x 4.1 cm is seen within the myometrium of the right uterine body, submucosal component is visualized. Endometrium: 20 mm. Heterogeneous and thickened in the fundal region without abnormal vascularity detected by color Doppler. Cervix: Nabothian cysts. Right Ovary: 3.3 x 1.9 x 2.5 cm, volume 8.4 cc. Normal echotexture and blood flow, seen transabdominally only. Left Ovary: 3.5 x 1.6 x 3.1 cm, volume 9.5 cc. Normal echotexture and blood flow, simple appearing cyst measuring up to 2.2 cm felt to possibly represent a dominant follicle. Free Fluid: None. Other: None. IMPRESSION: Fibroid uterus with thickened endometrium as described. RADIA
== END 2019-05-18 17:02 | disposition home or self-care (01) ==
LOC: DI 17:01
PROVIDERS: ATTEND Obstetrics & Gynecology
DX: D25.0 Submucous leiomyoma of uterus (principal); R93.89 Abnormal findings on diagnostic imaging of other specified body structures
CPT/HCPCS: 76830; 76856

== ENCOUNTER 2019-08-02 08:00 | Outpatient (CLI) | payer OTHER ==
[2019-08-02 18:50] LABS: BASOPHILS % (AUTO) 0.2 %; EOSINOPHILS # (AUTO) 0.1 10^3/uL (0.0-0.7); EOSINOPHILS % (AUTO) 1.3 %; HGB - HEMOGLOBIN 12.6 g/dL (12.0-16.0); LYMPHOCYTES # (AUTO) 2.3 10^3/uL (1.5-3.5); LYMPHOCYTES % (AUTO) 21.5 %; MEAN CORPUSCULAR HEMOGLOBIN 25.8 pg (27.0-31.0); MEAN CORPUSCULAR HGB CONC 30.1 g/dL (32.0-36.0); MEAN CORPUSCULAR VOLUME 85.9 fL (81.0-99.0); MEAN PLATELET VOLUME 11.6 fL (7.9-10.8); MONOCYTES # (AUTO) 0.6 10^3/uL (0.0-1.0); MONOCYTES % (AUTO) 5.9 %; NEUTROPHILS # (AUTO) 7.5 10^3/uL (1.5-6.6); NEUTROPHILS % (AUTO) 70.8 %; PLT - PLATELET COUNT 314 10^3/uL (130-450); RED BLOOD COUNT 4.88 10^6/uL (4.20-5.40); RED CELL DISTRIBUTION WIDTH 14.3 % (12.0-15.0); WHITE BLOOD COUNT 10.6 x10^3/uL (4.8-10.8)
[2019-08-02 19:23] LABS: % IRON SATURATION 9 % (20-50); ALBUMIN/GLOBULIN RATIO 1.1 (1.0-2.2); ALKALINE PHOSPHATASE 62 IU/L (42-121); ALT ALANINE AMINOTRANSFERASE 45 IU/L (10-60); AST ASPARTATE AMINOTRANSFERASE 26 IU/L (10-42); BILIRUBIN,TOTAL 0.5 mg/dL (0.2-1.0); BUN - BLOOD UREA NITROGEN 12 mg/dL (6-20); CALCIUM 8.8 mg/dL (8.5-10.3); CARBON DIOXIDE - CO2 25 mmol/L (21-32); CHLORIDE 105 mmol/L (101-111); CHOL/HDL RATIO 3.5 (<4.4); CHOLESTEROL 197 mg/dL; CREATININE 0.7 mg/dL (0.4-1.0); FERRITIN 15.6 ng/mL (11.0-306.8); GFR - MDRD 111 (>89); GLUCOSE 94 mg/dL (70-100); HDL CHOLESTEROL 57 mg/dL; IRON 32 ug/dL (28-170); LDL CHOLESTEROL,CALCULATED 118 mg/dL; LDL/HDL RATIO 2.1 (<4.4); SODIUM 137 mmol/L (135-145); TOTAL IRON BINDING CAPACITY 349 ug/dL (250-450); TOTAL PROTEIN 7.6 g/dL (6.7-8.2); TRANSFERRIN 249 mg/dL (192-382); VLDL CHOLESTEROL 22 mg/dL
== END 2019-08-02 23:59 | disposition home or self-care (01) ==
LOC: LAB.WCP 08:00
PROVIDERS: ATTEND Physician Assistant Medical
DX: E03.9 Hypothyroidism, unspecified (principal); E55.9 Vitamin D deficiency, unspecified; D50.9 Iron deficiency anemia, unspecified
CPT/HCPCS: 36415; 80053; 80061; 82728; 83540; 83721; 84443; 84466; 85025

== ENCOUNTER 2019-10-23 10:59 | Outpatient (CLI) | payer OTHER ==
[2019-10-23 11:33] LABS: BASOPHILS # (AUTO) 0.1 10^3/uL (0.0-0.1); BASOPHILS % (AUTO) 0.4 %; EOSINOPHILS # (AUTO) 0.2 10^3/uL (0.0-0.7); EOSINOPHILS % (AUTO) 1.4 %; HGB - HEMOGLOBIN 13.7 g/dL (12.0-16.0); LYMPHOCYTES # (AUTO) 2.8 10^3/uL (1.5-3.5); LYMPHOCYTES % (AUTO) 21.6 %; MEAN CORPUSCULAR HGB CONC 31.8 g/dL (32.0-36.0); MEAN PLATELET VOLUME 11.4 fL (7.9-10.8); MONOCYTES # (AUTO) 0.8 10^3/uL (0.0-1.0); NEUTROPHILS # (AUTO) 9.1 10^3/uL (1.5-6.6); NEUTROPHILS % (AUTO) 70.2 %; PLT - PLATELET COUNT 349 10^3/uL (130-450); RED BLOOD COUNT 5.07 10^6/uL (4.20-5.40); RED CELL DISTRIBUTION WIDTH 14.7 % (12.0-15.0); WHITE BLOOD COUNT 12.9 x10^3/uL (4.8-10.8)
[2019-10-23 11:34] LABS: BILIRUBIN,URINE NEGATIVE (NEGATIVE); GLUCOSE, URINE (UA) NEGATIVE (NEGATIVE); KETONES,URINE (UA) NEGATIVE (NEGATIVE); LEUKOCYTE ESTERASE, URINE NEGATIVE (NEGATIVE); NITRITE,URINE NEGATIVE (NEGATIVE); OCCULT BLOOD,URINE LARGE (NEGATIVE); PROTEIN,URINE NEGATIVE (NEGATIVE); UROBILINOGEN,URINE 0.2 (NORMAL) E.U./dL (NORMAL)
[2019-10-23 11:39] LABS: CLARITY,URINE SL. CLOUDY (CLEAR); HCG UR QUAL NEGATIVE
[2019-10-23 11:40] LABS: BACTERIA,URINE Rare /HPF (None Seen); RBC,URINE TNTC /HPF (0-5); SQUAMOUS EPITHELIAL CELL,UR MOD Squamous (<= Few)
[2019-10-23 11:47] LABS: ALBUMIN 4.3 g/dL (3.2-5.5); ALBUMIN/GLOBULIN RATIO 1.1 (1.0-2.2); BILIRUBIN,TOTAL 0.3 mg/dL (0.2-1.0); CALCIUM 9.2 mg/dL (8.5-10.3); CREATININE 0.7 mg/dL (0.4-1.0); TOTAL PROTEIN 8.2 g/dL (6.7-8.2)
[2019-10-23 12:08] LABS: PLATELET ESTIMATE, MANUAL NORMAL (130-450,000) (NORMAL); PLATELET MORPHOLOGY NORMAL APPEARANCE (NORMAL); RBC MORPHOLOGY (MULTIPLE) NORMAL APPEARANCE (NORMAL)
== END 2019-10-23 11:00 | disposition home or self-care (01) ==
LOC: LAB 10:59
PROVIDERS: ATTEND Obstetrics & Gynecology
DX: Z01.812 Encounter for preprocedural laboratory examination (principal); N92.0 Excessive and frequent menstruation with regular cycle; N85.00 Endometrial hyperplasia, unspecified
CPT/HCPCS: 36415; 80053; 81001; 81003; 81025; 85025; 87086

== ENCOUNTER 2019-10-24 06:05 | Day surgery (SDC) | payer OTHER ==
--- NOTE | 2019-10-23 10:45 | CONSULTATION NOTE ---
Consultation Report: Dr Shah wanted anesthesia to see this patient preop. Patient is a 44 year old female with BMI of 56.46. She is otherwise healthy. Denies any heart, lung disease, diabetes.She reports seasonal allergy induced asthma and has an inhaler that she uses occasionally. We have cleared her for her procedure on 10/24/19
--- NOTE | 2019-10-23 10:52 | CONSULTATION NOTE ---
Consultation Report: Dr Shah wants anesthesia team to see this patient preop. This is a 44 year of female with BMI of 56.4. She is otherwise healthy. She denies any heart disease, lung disease, diabetes, She takes synthroid for hypothroidism. She denies any history of chest/pain/pressure. We have cleared her for the procedure tomorrow.
[2019-10-24] MEDS ORDERED: ONDANSETRON 4 MG/2 ML VIAL IVP ONE (06:06)
[2019-10-24] MEDS ORDERED: DEXAMETHASONE 4 MG/ML VIAL IVP ONE (06:06)
[2019-10-24] MEDS ORDERED: MIDAZOLAM 2 MG/2 ML VIAL IVP ONE (06:06)
[2019-10-24] MEDS ORDERED: fentaNYL 100 MCG/2 ML VIAL IVP ONE (06:06)
[2019-10-24] MEDS ORDERED: PROPOFOL 200 MG/20 ML VIAL IVP ONE (06:06)
[2019-10-24] MEDS ORDERED: LACTATED RINGERS 1,000 ML IV ONE (06:29)
--- NOTE | 2019-10-24 07:04 | ANESTHESIA ---
Pre-Anesthesia VS, & Labs - Diagnosis menorrhagia, thickened endometrium - Procedure hysteroscopy, dnc Vital Signs: Temp Pulse Resp BP Pulse Ox 36.4 C L 93 16 152/84 H 98 10/24/19 06:29 10/24/19 06:29 10/24/19 06:29 10/24/19 06:29 10/24/19 06:29 Height 5 ft 8 in Weight (kg) 169 kg Body Mass Index 46.0 - Is Patient ?: No Home Medications and Allergies Home Medications: Ambulatory Orders Bupropion HCl [Bupropion Xl] 150 mg PO DAILY 10/23/19 Meloxicam 15 mg PO DAILY 10/23/19 Sertraline HCl 50 mg PO DAILY 10/23/19 hydrOXYzine PAMOATE [Vistaril] 25 mg PO Q6H PRN 10/23/19 Albuterol Sulfate [Ventolin Hfa] 2 puffs IH Q4H PRN 03/24/16 Bupropion HCl [Bupropion Xl] 150 mg PO DAILY 10/23/19 Levothyroxine Sodium 125 mcg PO DAILY 10/23/19 Meloxicam 15 mg PO DAILY 10/23/19 Sertraline HCl 50 mg PO DAILY 10/23/19 hydrOXYzine PAMOATE [Vistaril] 25 mg PO Q6H PRN 10/23/19 Allergies/Adverse Reactions: Allergies Allergy/AdvReac Type Severity Reaction Status Date / Time oxycodone Allergy Itching Verified 03/24/16 18:05 Anes History & Medical History - Anesthetic History Anesthesia Complications: reports: Other-see comment (denies any previous anesthetic experience) Family history of Anesthesia Complications: Denies Family history of Malignant Hyperthermia: Denies - Medical History Cardiovascular: reports: None Pulmonary: reports: Asthma (seasonal asthma, last episode two years ago) Gastrointestinal: reports: None Urinary: reports: None Neuro: reports: None Musculoskeletal: reports: None Endocrine/Autoimmune: reports: HyPOthyroidism Blood Disorders: reports: Anemia Skin: reports: None Smoking Status: Former smoker Psychosocial: reports: Depression, Anxiety Exam General: Alert, Oriented x3, Cooperative, No acute distress Mouth Openin Fingerbreadth Neck Mobility: Normal Mallampati classification: I Thyromental Distance: 4-6 cm Respiratory: Lungs clear, Normal breath sounds, No respiratory distress, No accessory muscle use Cardiovascular: Regular rate, Normal S1, Normal S2, No murmurs Abdomen: Normal bowel sounds, Soft, No tenderness, No hepatospenomegaly, No masses Extremities: No clubbing, No cyanosis, No edema, Normal pulses, No tenderness/swelling Neurological: Normal gait, Normal speech, Strength at 5/5 X4 ext, Normal tone, Sensation intact, Cranial nerves 3-12 NL, Reflexes 2+ Mental/Cognitive Status: Alert/Oriented X3, Normal for patient Cognitive Status: Within normal limits Plan Anesthesia Type: General Consent for Procedure(s) Verified and Reviewed: Yes Code Status: Attempt Resuscitation ASA classification: 2-Mild systemic disease Is this case an emergency?: No
[2019-10-24 09:00] VITALS: BP 129/88
--- NOTE | 2019-10-24 10:26 | OPERATIVE REPORT ---
DATE OF SERVICE: 10/24/2019 Physician: Krishna Shah DO PREOPERATIVE DIAGNOSES 1. Menorrhagia. 2. Thickened endometrium. POSTOPERATIVE DIAGNOSES 1. Menorrhagia. 2. Thickened endometrium. PROCEDURE: Failed hysteroscopy with D and C. SURGEON: Krishna Shah DO. ANESTHESIA: General. ESTIMATED BLOOD LOSS: 1 mL COUNTS: Sponge count was correct. Needle count not indicated. DESCRIPTION OF PROCEDURE: Patient was taken to the operative suite, placed on the surgical table in supine position. Under general anesthesia, she was then prepped and draped in the usual fashion. A timeout then took place. Once the timeout was completed, a long weighted speculum was then placed in the vaginal vault. Right angle retractors were then used to try to visualize the cervix. This paige ent is morbidly obese with a BMI greater than 50. The vaginal madrid continued to collapse on the cer vix. A very long Graves speculum was then used and the cervix was visualized. A single-tooth tenacu lum was placed onto the anterior lip of the cervix and the os visualized. An attempt was then made t o sound the uterus and the cervix was so stenotic that it could not pass the sound beyond the initial opening of the external os. Attempt was then made to use dilators, but we had no dilators small anam ugh to cannulate. It was felt that further pressure, put her at risk for perforation or blind passag e. Our instruments were unfortunately not long enough to also reach the cervix adequately and it was felt that further attempts was dangerous, Therefore the procedure was aborted. The single-tooth ten aculum was removed from the anterior lip of the cervix. No signs of bleeding were noted. Hemostasis followed. The speculum was now removed from the vaginal vault. Patient was taken to recovery room in stable condition. TD: 10/24/2019 08:34
== END 2019-10-24 06:06 | disposition home or self-care (01) ==
LOC: SDS 06:05
PROVIDERS: ATTEND Obstetrics & Gynecology
PROC: 0UJD8ZZ Inspection of Uterus and Cervix, Via Natural or Artificial Opening Endoscopic (ICD-10-PCS; principal; 2019-10-24 07:30)
DX: N92.0 Excessive and frequent menstruation with regular cycle (principal); N85.00 Endometrial hyperplasia, unspecified; E66.01 Morbid (severe) obesity due to excess calories; Z68.43 Body mass index [BMI] 50.0-59.9, adult; J45.909 Unspecified asthma, uncomplicated; E03.9 Hypothyroidism, unspecified; Z53.09 Procedure and treatment not carried out because of other contraindication
CPT/HCPCS: 58555; J7120

== ENCOUNTER 2023-02-24 10:14 | Outpatient (CLI) | payer OTHER ==
[2023-02-24 11:49] LABS: BASOPHILS % (AUTO) 0.5 %; EOSINOPHILS # (AUTO) 0.1 10^3/uL (0.0-0.7); EOSINOPHILS % (AUTO) 1.9 %; HGB - HEMOGLOBIN 15.9 g/dL (12.0-16.0); LYMPHOCYTES % (AUTO) 26.1 %; MEAN CORPUSCULAR HEMOGLOBIN 29.1 pg (27.0-31.0); MEAN CORPUSCULAR HGB CONC 32.4 g/dL (32.0-36.0); MEAN CORPUSCULAR VOLUME 89.7 fL (81.0-99.0); MEAN PLATELET VOLUME 12.1 fL (7.9-10.8); MONOCYTES # (AUTO) 0.5 10^3/uL (0.0-1.0); NEUTROPHILS # (AUTO) 4.9 10^3/uL (1.5-6.6); NEUTROPHILS % (AUTO) 65.4 %; PLT - PLATELET COUNT 301 10^3/uL (130-450); RED BLOOD COUNT 5.46 10^6/uL (4.20-5.40); RED CELL DISTRIBUTION WIDTH 12.9 % (12.0-15.0); WHITE BLOOD COUNT 7.6 x10^3/uL (4.8-10.8)
[2023-02-24 12:00] LABS: ALBUMIN 4.6 g/dL (3.2-5.5); ALBUMIN/GLOBULIN RATIO 1.2 (1.0-2.2); ALKALINE PHOSPHATASE 72 IU/L (42-121); ALT ALANINE AMINOTRANSFERASE 112 IU/L (10-60); AST ASPARTATE AMINOTRANSFERASE 71 IU/L (10-42); BILIRUBIN,TOTAL 0.9 mg/dL (0.2-1.0); BUN - BLOOD UREA NITROGEN 14 mg/dL (6-20); CALCIUM 9.5 mg/dL (8.5-10.3); CARBON DIOXIDE - CO2 26 mmol/L (21-32); CHLORIDE 106 mmol/L (101-111); CHOL/HDL RATIO 4.7 (<4.4); CHOLESTEROL 234 mg/dL; CREATININE 0.9 mg/dL (0.4-1.0); GFR - MDRD 82 (>89); GLUCOSE 124 mg/dL (70-100); HDL CHOLESTEROL 50 mg/dL; LDL CHOLESTEROL,CALCULATED 159 mg/dL; LDL/HDL RATIO 3.2 (<4.4); POTASSIUM 4.1 mmol/L (3.5-5.0); SODIUM 139 mmol/L (135-145); TOTAL PROTEIN 8.3 g/dL (6.7-8.2); TRIGLYCERIDES 123 mg/dL; VLDL CHOLESTEROL 25 mg/dL
[2023-02-24 12:16] LABS: THYROID STIMULATING HORMONE 10.98 uIU/mL (0.34-5.60)
[2023-02-24 13:08] LABS: FREE T4 (FREE THYROXINE) 0.61 ng/dL (0.58-1.64)
== END 2023-02-24 10:15 | disposition home or self-care (01) ==
LOC: LAB.N 10:14
PROVIDERS: ATTEND Physician Assistant Medical
DX: Z00.00 Encounter for general adult medical examination without abnormal findings (principal); E03.9 Hypothyroidism, unspecified
CPT/HCPCS: 36415; 80053; 80061; 83721; 84439; 84443; 85025

== ENCOUNTER 2023-03-24 15:07 | Outpatient (CLI) | payer OTHER ==
[2023-03-24 18:25] LABS: ALBUMIN 4.5 g/dL (3.2-5.5); ALBUMIN/GLOBULIN RATIO 1.1 (1.0-2.2); CALCIUM 9.7 mg/dL (8.5-10.3); CREATININE 0.9 mg/dL (0.4-1.0); POTASSIUM 3.9 mmol/L (3.5-5.0); TOTAL PROTEIN 8.6 g/dL (6.7-8.2)
[2023-03-26 07:09] LABS: HBsAG SCREEN Negative (Negative)
[2023-03-27 05:08] LABS: HCV AB Non Reactive (Non Reactive)
== END 2023-03-24 15:08 | disposition home or self-care (01) ==
LOC: LAB.N 15:07
PROVIDERS: ATTEND Physician Assistant Medical
DX: R79.89 Other specified abnormal findings of blood chemistry (principal)
CPT/HCPCS: 36415; 80053; 82977; 86317; 86704; 86709; 86803; 87340

== ENCOUNTER 2024-01-17 13:25 | Outpatient (CLI) | payer OTHER ==
--- NOTE | 2024-01-17 15:20 | XRAY Report ---
PROCEDURE: Lumbar Spine 2-3V INDICATIONS: LOW BACK PAIN TECHNIQUE: 3 views of the lumbar spine were acquired. COMPARISON: Same-day hip radiographs. FINDINGS: Bones: 5 [id number] vertebrae are present. There is normal bony alignment. Small vertebral bod y osteophytes. Disc space height loss most pronounced at L5-S1. No vertebral body compression fractu res. No suspicious bony lesions. Soft tissues: Overlying bowel gas pattern is normal. No suspicious soft tissue calcifications. IMPRESSION: Mild degenerative changes in the lumbar spine. Reviewed by: Koko Flores MD on 01/17/2024 3:19 PM PST Approved by: Koko Flores MD on 01/17/2024 3:19 PM [facility] Station ID: [id number]
--- NOTE | 2024-01-17 19:12 | XRAY Report ---
PROCEDURE: Hip w/Pelvis 2-3V LT INDICATIONS: LEFT HIP PAIN TECHNIQUE: 2 views of the hip were acquired. COMPARISON: None. FINDINGS: Bones: Mild joint space narrowing bilaterally. No displaced fracture or dislocation. Soft tissues: No suspicious soft tissue calcifications. A small density seen adjacent to the left fe mur, location indeterminate, possibly artifact. IMPRESSION: Limited radiograph due to overlying soft tissues and artifact. Mild bilateral hip degenerative change s. No definite acute radiographic abnormality. If there is high concern for further derangement, cons ider MRI evaluation. Reviewed by: Kale Dozier MD on 01/17/2024 7:11 PM PST Approved by: Kale Dozier MD on 01/17/2024 7:11 PM PST Station ID: [id number]
== END 2024-01-17 13:26 | disposition home or self-care (01) ==
LOC: DI 13:25
PROVIDERS: ATTEND Family Medicine
DX: M16.0 Bilateral primary osteoarthritis of hip (principal); M47.816 Spondylosis without myelopathy or radiculopathy, lumbar region

== ENCOUNTER 2024-02-21 09:02 | Outpatient (CLI) | payer OTHER ==
--- NOTE | 2024-02-22 09:56 | Mammography Report ---
BILATERAL DIGITAL SCREENING MAMMOGRAM 3D/2D: 02/21/2024 CLINICAL: Baseline exam. Routine screening. No prior exams were available for comparison. Both breasts are almost entirely fatty (category a/<25% glandular tissue). No significant masses, calcifications, or other findings are seen in either breast. IMPRESSION: NEGATIVE There is no mammographic evidence of malignancy. A 1 year screening mammogram is recommended. Based on the Tyrer Cuzick model (a risk assessment model) the patient's lifetime risk is 3.5% and her 10 year risk is 0.7%. According to the ACR, ACS, and NCCN guidelines, an annual breast MRI exam carmen g with mammogram is recommended if the patient's lifetime risk is 20% or greater. This exam was interpreted at Station ID: [id number]. NOTE: For mammograms, a report in lay terms will be sent to the patient. Approximately 15% of breast malignancies will not be visualized mammographically. In the management of a palpable breast mass, a negative mammogram must not discourage biopsy of a clinically suspicious lesion. Electronically Signed By: John law/natalie:02/21/2024 18:09:57 ACR BI-RADS Category 1: Negative 3341F PARENCHYMAL PATTERN: (F) - The breast(s) demonstrate(s) diffuse fatty replacement. BI-RADS CATEGORY: (1) - 1 RECOMMENDATION: (ANNUAL) - Recommend routine annual screening mammography. [id number] 1 year screening LATERALITY: (B)
== END 2024-02-21 09:03 | disposition home or self-care (01) ==
LOC: DI.N 09:02
DX: Z12.31 Encounter for screening mammogram for malignant neoplasm of breast (principal)

== ENCOUNTER 2024-04-26 14:17 | Outpatient (CLI) | payer OTHER ==
[2024-04-26 18:24] LABS: BASOPHILS # (AUTO) 0.1 10^3/uL (0.0-0.1); BASOPHILS % (AUTO) 0.4 %; EOSINOPHILS # (AUTO) 0.2 10^3/uL (0.0-0.7); EOSINOPHILS % (AUTO) 1.6 %; HCT - HEMATOCRIT 47.9 % (37.0-47.0); HGB - HEMOGLOBIN 15.3 g/dL (12.0-16.0); LYMPHOCYTES # (AUTO) 2.8 10^3/uL (1.5-3.5); LYMPHOCYTES % (AUTO) 24.2 %; MEAN CORPUSCULAR HEMOGLOBIN 28.4 pg (27.0-31.0); MEAN CORPUSCULAR HGB CONC 31.9 g/dL (32.0-36.0); MEAN PLATELET VOLUME 11.9 fL (7.9-10.8); MONOCYTES # (AUTO) 0.5 10^3/uL (0.0-1.0); MONOCYTES % (AUTO) 4.7 %; NEUTROPHILS % (AUTO) 68.8 %; PLT - PLATELET COUNT 333 10^3/uL (130-450); RED BLOOD COUNT 5.38 10^6/uL (4.20-5.40); RED CELL DISTRIBUTION WIDTH 13.4 % (12.0-15.0); WHITE BLOOD COUNT 11.6 x10^3/uL (4.8-10.8)
[2024-04-26 18:39] LABS: ALBUMIN 4.5 g/dL (3.2-5.5); ALBUMIN/GLOBULIN RATIO 1.6 (1.0-2.2); ALKALINE PHOSPHATASE 89 IU/L (42-121); ALT ALANINE AMINOTRANSFERASE 15 IU/L (10-60); AST ASPARTATE AMINOTRANSFERASE 13 IU/L (10-42); BILIRUBIN,TOTAL 0.4 mg/dL (0.2-1.0); BUN - BLOOD UREA NITROGEN 15 mg/dL (6-20); CARBON DIOXIDE - CO2 27 mmol/L (21-32); CHLORIDE 105 mmol/L (101-111); CREATININE 0.9 mg/dL (0.6-1.3); GFR - MDRD 81 (>89); GLUCOSE 85 mg/dL (74-104); SODIUM 139 mmol/L (135-145); TOTAL PROTEIN 7.4 g/dL (6.4-8.9); TRIGLYCERIDES 124 mg/dL (48-352)
[2024-04-26 18:40] LABS: CHOL/HDL RATIO 3.8 (<4.4); CHOLESTEROL 249 mg/dL; HDL CHOLESTEROL 66 mg/dL; LDL CHOLESTEROL,CALCULATED 158 mg/dL; LDL/HDL RATIO 2.4 (<4.4); VLDL CHOLESTEROL 25 mg/dL
[2024-04-26 18:55] LABS: THYROID STIMULATING HORMONE 4.86 uIU/mL (0.34-5.60)
== END 2024-04-26 14:18 | disposition home or self-care (01) ==
LOC: LAB.N 14:17
PROVIDERS: ATTEND Physician Assistant Medical
DX: Z00.00 Encounter for general adult medical examination without abnormal findings (principal); E03.9 Hypothyroidism, unspecified
CPT/HCPCS: 36415; 80053; 80061; 83721; 84443; 85025